=== PATIENT | female | born 1960 | race Caucasian/White ===

== ENCOUNTER → 2017-03-26 | Outpatient (CLI) | payer BC ==
[~2017-03-26] MED LIST: AMBIEN CR6.25 MG PO; ATIVAN 0.50.5 MG/TAB PO; MAXALT10 MG PO; SYNTHROID0.05 MG/TA PO
== END ==
LOC: COL.RAD 03-24 07:30
DX: K80.20 Calculus of gallbladder without cholecystitis without obstruction (principal)

== ENCOUNTER → 2017-08-20 | Outpatient (CLI) | payer BC | LOC: MC.RAD 14:56 | DX: Z12.31 Encounter for screening mammogram for malignant neoplasm of breast (principal) ==

== ENCOUNTER → 2018-12-22 | Outpatient (CLI) | payer BC | LOC: COL.RAD 07:27 | DX: D25.9 Leiomyoma of uterus, unspecified (principal); Z90.49 Acquired absence of other specified parts of digestive tract | CPT/HCPCS: Q9967 ==

== ENCOUNTER → 2020-12-28 | Outpatient (CLI) | payer BC | LOC: COL.RAD 12-13 07:30 | DX: Z13.89 Encounter for screening for other disorder (principal); H53.2 Diplopia; R29.891 Ocular torticollis; H50.22 Vertical strabismus, left eye | CPT/HCPCS: A9585 ==

== ENCOUNTER 2022-04-13 18:31 | Emergency (ER) | payer BC ==
[~2022-04-13] VITALS: Ht 157.5 cm; Wt 62.7 kg
[2022-04-13 18:39] VITALS: BP 145/76; TEMP 98.1
[2022-04-13] MEDS ORDERED: BACTRIM DS 8001 TAB PO (19:42)
[2022-04-13 19:53] VITALS: PULSE 80
== END 2022-04-13 19:53 | disposition home or self-care (01) ==
LOC: COL.ER 18:31
DX: S61.412A Laceration without foreign body of left hand, initial encounter (principal); Z88.1 Allergy status to other antibiotic agents; Z23 Encounter for immunization; W26.9XXA Contact with unspecified sharp object(s), initial encounter

== ENCOUNTER → 2023-03-18 | Outpatient (CLI) | payer BC ==
[~2023-03-18] MED LIST changes: +BACTRIM DS 8001 TAB PO
== END ==
LOC: MC.RAD 10:56
DX: Z12.31 Encounter for screening mammogram for malignant neoplasm of breast (principal)